=== PATIENT | female | born 1970 | race African-American/Black ===

== ENCOUNTER 2023-08-28 19:49 | Inpatient (IN) | payer OTHER ==
[~2023-08-28 19:49] MED LIST: Iopamidol 370 76% 100 ML VIAL ONE
[2023-08-28] MEDS ORDERED: Magnesium 2 GM/50 ML BAG (IN WATER) ONE (20:09)
[2023-08-28] MEDS ORDERED: Dexamethasone 10 MG/ML VIAL ONE (20:09)
[2023-08-28] MEDS ORDERED: LevoFLOXacin 750 mg/D5W 150 ml Premix Bag ONE (20:09)
[2023-08-28] MEDS ORDERED: Albuterol 2.5 MG (3 mL) NEB ONE (20:18)
[2023-08-28] MEDS ORDERED: Ipratropium/Albuterol 3 ML NEB ONE (20:18)
[2023-08-28 20:45] LABS: Hematocrit 44.9 % (34.9-44.5); Hemoglobin 14.3 g/dL (12.0-15.5); Mean Corpuscular HGB CONC 31.8 g/dL (32.0-36.0); Mean Corpuscular Volume 91.1 fl (81.6-98.3); Mean Platelet Volume 10.4 fl (7.4-10.4); Platelet Count 236 10x3/uL (150-450); RBC Distribution Width 14.1 % (11.5-14.5); Red Blood Cell (RBC) Count 4.93 10x6/uL (3.90-5.03); White Blood Cell (WBC) Count 5.7 10x3/uL (3.5-10.5)
[2023-08-28 20:46] LABS: MDiff Complete? YES
[2023-08-28 20:55] LABS: ALT (SGPT) 45 U/L (8-55); AST (SGOT) 49 U/L (5-34); Albumin 3.8 g/dL (3.5-5.0); Alkaline Phosphatase 105 U/L (40-110); Anion Gap 14 mmol/L (10-20); BUN (Urea Nitrogen) 19 mg/dL (9.8-20.1); Bilirubin, Total 1.1 mg/dL (0.2-1.2); Calc. Creatinine Clearance 0 mL/min (70-130); Calcium 8.3 mg/dL (7.8-10.44); Carbon Dioxide 29 mmol/L (22-29); Chloride 101 mmol/L (98-107); Estimated GFR 100; Globulin 3.3 g/dL (2.4-3.5); Glucose 106 mg/dL (70-105); Lipase 30 U/L (8-78); Potassium 3.5 mmol/L (3.5-5.1); Protein, Total 7.1 g/dL (6.0-8.3); Sodium 140 mmol/L (136-145)
[2023-08-28 20:56] LABS: Actual Bicarbonate (HCO3a) 28.9 mEq/L (22-28); Analyzer IN Cardio CS ER; Base Excess (BEa) 3.1 mEq/L (-2.0 to +3.0); CO2 Tension 48.2 mmHg (35.0-45.0); Calcium, Ionized (arterial) 1.12 mmol/L (1.12-1.30); Carboxyhemoglobin (COHb) 2.7 gm% (0.0-3.0); Critical Notified By: CP.PH; Hematocrit-ABG 42 % (36.0-47.0); Hemoglobin (Hb) 14.2 g/dL (12.0-16.0); O2 Tension (PaO2), arterial 100.3 mmHg (80.0-100.0); Potassium - ABG Lab 3.08 mmol/L (3.70-5.30); Puncture Site RRA; RapidComm Collect By CP.PH; pH, Arterial 7.395 (7.35-7.45)
[2023-08-28 21:01] LABS: Troponin I 0.033 ng/mL (< 0.028)
[2023-08-28 21:11] LABS: SARS-CoV-2 NAA Rapid Test Not Detected (NotDetected)
[2023-08-28 21:16] LABS: Band 3 % (5-11); Eosinophils 2 % (0-10); Lymphocytes 25 % (21-51); Monocytes 4 % (0-10); Neutrophil 61 % (42-75); Reactive Lymphocytes 5 % (0-10)
[2023-08-28 21:18] LABS: Platelet Adequacy Comment Appears Adequate; RBC Morph Comment Within Normal Limits
[2023-08-28 21:18] LABS: Bilirubin Neg (Negative); Blood, Urine 150 (Negative); Glucose, Urine (Dipstick) Normal (Negative); Ketone, Urine Negative (Negative); Leukocyte 500 (Negative); Nitrite Negative (Negative); Protein, Urine (Dipstick) 30 mg/dl (Neg-Trace); Specific Gravity, Urine 1.015 (1.005-1.030)
[2023-08-28 21:23] LABS: Clarity Turbid (Clear)
[2023-08-28 21:25] LABS: CAUTI Indications for Culture Pelvic or flank pain; WBC/HPF 21-50 HPF (0-3)
[2023-08-28 21:26] LABS: Mucous/LPF 2+ LPF (<2+); Trichomonas/HPF 2+ HPF (None Seen)
[2023-08-28 21:27] LABS: Bacteria/HPF 4+ HPF (None Seen)
[2023-08-28 21:29] LABS: Urine Culture Reflex Yes Yes
[2023-08-28] MEDS ORDERED: Cefepime 2 GM VIAL ONE (21:43)
[2023-08-28] MEDS ORDERED: Aspirin Chewable 81 MG TAB ONE ×3 (22:06→22:10)
[2023-08-28] MEDS ORDERED: metroNIDAZOLE 500 MG (100 mL) BAG ONE (22:07)
[2023-08-28] MEDS ORDERED: Zolpidem Tartrate 5 MG TAB PO PRN (22:25)
[2023-08-28] MEDS ORDERED: Guaifenesin DM 100-10/5 ML UDCUP PO PRN (22:25)
[2023-08-28] MEDS ORDERED: Senokot S 8.6-50 MG TAB PO PRN (22:25)
[2023-08-28] MEDS ORDERED: Ondansetron PF 4 MG/2 ML Vial IVP PRN (22:25)
[2023-08-28] MEDS ORDERED: Acetaminophen 325 MG TAB PO PRN (22:25)
[2023-08-28] MEDS ORDERED: Calcium Carbonate 500 MG ChewTAB PO PRN (22:25)
[2023-08-28] MEDS ORDERED: Glucagon 1 MG/ML KIT IM PRN (22:27)
[2023-08-28] MEDS ORDERED: Dextrose 50% Abboject 50 ML SYRINGE SLOW IVP PRN (22:27)
[2023-08-28] MEDS ORDERED: Dextrose 5% in Water 1,000 ML IV PRN (22:27)
[2023-08-28] MEDS ORDERED: Ipratropium/Albuterol 3 ML NEB NEB PRN (22:28)
[2023-08-28] MEDS: Oseltamivir 75 MG CAP PO SCH (22:42)
[2023-08-28] MEDS: Nicotine 14 MG PATCH TD SCH (22:48)
[2023-08-28 23:31] LABS: Lactic Acid 1.5 mmol/L (0.5-2.2)
[2023-08-29 00:12] LABS: Troponin I 0.032 ng/mL (< 0.028)
[2023-08-29 03:50] LABS: Hematocrit 43.6 % (34.9-44.5); Hemoglobin 13.7 g/dL (12.0-15.5); Mean Corpuscular HGB CONC 31.4 g/dL (32.0-36.0); Mean Corpuscular Hemoglobin 28.6 pg (27.0-33.0); Mean Platelet Volume 10.4 fl (7.4-10.4); Platelet Count 233 10x3/uL (150-450); RBC Distribution Width 14.1 % (11.5-14.5); Red Blood Cell (RBC) Count 4.79 10x6/uL (3.90-5.03); White Blood Cell (WBC) Count 7.6 10x3/uL (3.5-10.5)
[2023-08-29 03:51] LABS: MDiff Complete? YES
[2023-08-29 03:59] LABS: Anion Gap 14 mmol/L (10-20); BUN (Urea Nitrogen) 16 mg/dL (9.8-20.1); Calc. Creatinine Clearance 0 mL/min (70-130); Calcium 8.3 mg/dL (7.8-10.44); Carbon Dioxide 27 mmol/L (22-29); Chloride 103 mmol/L (98-107); Estimated GFR 103; Glucose 152 mg/dL (70-105); Potassium 3.7 mmol/L (3.5-5.1); Sodium 140 mmol/L (136-145)
[2023-08-29 04:07] LABS: Troponin I 0.039 ng/mL (< 0.028)
[2023-08-29 04:52] LABS: Band 16 % (5-11); Lymphocytes 9 % (21-51); Neutrophil 71 % (42-75); Reactive Lymphocytes 4 % (0-10)
[2023-08-29 04:55] LABS: Platelet Adequacy Comment Appears Adequate; Polychromasia SLIGHT = 2-3 cells (100X) (0-2/hpf); Vacuoles SLIGHT
[2023-08-29] MEDS: Mometasone/Formoterol 200/5 60 PUFF INH SCH (05:25)
[2023-08-29] MEDS ORDERED: Enoxaparin 40 MG (0.4 mL) SYRINGE ONE (09:26)
[2023-08-29] MEDS ORDERED: Benzonatate 100 MG CAP ONE (09:26)
[2023-08-29] MEDS ORDERED: metroNIDAZOLE 500 MG TAB ONE (09:26)
[2023-08-29] MEDS ORDERED: methylPREDNISolone Sod Succ 40 MG VIAL ONE (09:26)
[2023-08-29] MEDS ORDERED: Losartan 25 MG TAB ONE (09:28)
[2023-08-29] MEDS: Amlodipine 10 MG TAB PO SCH (09:42)
[2023-08-29] MEDS: Enoxaparin 40 MG (0.4 mL) SYRINGE SC SCH (09:43)
[2023-08-29] MEDS: Chlorthalidone 25 MG TAB PO SCH (09:43)
[2023-08-29] MEDS: methylPREDNISolone Sod Succ 40 MG VIAL IVP SCH (09:43)
[2023-08-29] MEDS: guaiFENesin ER 600 MG TAB PO SCH (09:43)
[2023-08-29] MEDS: Oseltamivir 75 MG CAP PO SCH (09:43)
[2023-08-29] MEDS: Losartan 25 MG TAB PO SCH (09:43)
[2023-08-29] MEDS: metroNIDAZOLE 500 MG TAB PO SCH (09:43)
[2023-08-29] MEDS: Benzonatate 100 MG CAP PO SCH (09:43)
[2023-08-29] MEDS: HumaLOG 300 UNITS/3 ML VIAL SC PRN (11:05)
[2023-08-29 16:58] VITALS: BMI 61.0
[2023-08-29] MEDS: cefTRIAXone\\ROCEPHIN 2 GM in Sodium Chloride 0.9% 100 ML IVPB SCH (20:53)
[2023-08-29] MEDS: Azithromycin 500 MG in Sodium Chloride 0.9% 250 ML 250 ML IVPB SCH (22:23)
[2023-08-30] MEDS: Vancomycin 1 GM in Sodium Chloride 0.9% 250 ML 250 ML IVPB SCH (00:26)
[2023-08-30 13:45] VITALS: BP 134/70; TEMP 98.1
== END 2023-08-30 14:45 | disposition home or self-care (01) | DRG 871 ==
LOC: CSHERS 19:49 → CSHERHOLD 22:09 → CSHTELE 08-29 13:24
PROVIDERS: ADMIT Student in an Organized Health Care Education/Training Program; ATTEND Hospitalist
PROC: 4A033R1 Measurement of Arterial Saturation, Peripheral, Percutaneous Approach (ICD-10-PCS; principal; 2023-08-28)
PROC: 3E03329 Introduction of Other Anti-infective into Peripheral Vein, Percutaneous Approach (ICD-10-PCS; 2023-08-28)
DX: A41.89 Other specified sepsis (principal); J10.08 Influenza due to other identified influenza virus with other specified pneumonia; J96.01 Acute respiratory failure with hypoxia; J12.9 Viral pneumonia, unspecified; J15.9 Unspecified bacterial pneumonia; J44.1 Chronic obstructive pulmonary disease with (acute) exacerbation; N39.0 Urinary tract infection, site not specified; E87.20 Acidosis, unspecified; Z68.44 Body mass index [BMI] 60.0-69.9, adult; E66.01 Morbid (severe) obesity due to excess calories; F17.210 Nicotine dependence, cigarettes, uncomplicated; I11.0 Hypertensive heart disease with heart failure; I50.9 Heart failure, unspecified; E11.9 Type 2 diabetes mellitus without complications; A59.9 Trichomoniasis, unspecified; Z82.49 Family history of ischemic heart disease and other diseases of the circulatory system; Z79.84 Long term (current) use of oral hypoglycemic drugs; Z79.899 Other long term (current) drug therapy
CPT/HCPCS: 36415; 36416; 36600; 71045; 71275; 80048; 80053; 81001; 82805; 83605; 83690; 83880; 84145; 84484; 85025; 85379; 87040; 87077; 87086; 87149; 87186; 93005; 93306; 94644; 94760; 94762; J0456; J0692; J0696; J1100; J1650; J1815; J1956; J2920; J3370; J3475; J3490; J7050; J7611; J7620; Q9967